=== PATIENT | male | born 2000 ===

== ENCOUNTER → 2019-12-03 | Outpatient (CLI) | payer OTHER ==
[2019-12-03 18:33] LABS: BASO # 0.1 (0.0-0.2); BASO % 0.8 % (0.0-2.0); EOS # 0.1 (0.0-0.7); EOS % 1.3 % (0-4.0); GRAN # 4.9 (1.4-6.5); GRAN % 59.5 % (42.2-75.2); HEMATOCRIT 45.2 % (36.0-47.0); HEMOGLOBIN 15.3 g/dl (12.5-16.1); LYMPH # 2.7 (1.2-3.4); LYMPH % 32.3 % (20.0-51.0); MEAN CELL VOLUME 92 fl (80.0-95.0); MEAN CORPUSCULAR HEMOGLOBIN 31 pg (26.0-32.0); MEAN CORPUSCULAR HGB CONC 34 g/dl (33.0-37.0); MEAN PLATELET VOLUME 10.5 fl (7.4-10.4); MONO # 0.5 (0.1-0.6); MONO % 5.9 % (1.7-9.3); PLATELET COUNT 227 K/mm3 (130-400); RED BLOOD COUNT 4.93 M/mm3 (4.20-5.60); REDCELL DISTRIBUTION WIDTH-CV 12.7 % (11.5-14.5)
[2019-12-03 18:36] LABS: ALBUMIN 4.8 gm/dL (3.5-5.0); BILIRUBIN,TOTAL 0.6 mg/dL (0.0-1.0); CALCIUM 9.6 mg/dL (8.4-10.2); CREATININE, serum 0.79 (0.66-1.25); POTASSIUM 4.1 mmol/L (3.4-5.0); TOTAL PROTEIN 8.6 gm/dL (6.4-8.2)
[2019-12-04 11:55] LABS: CLOSTRIDIUM DIFF A/B NEG; CLOSTRIDIUM DIFF A/B INTERP No C.diff present
== END ==
LOC: ZLAB.KSTAT 16:34
DX: Z01.89 Encounter for other specified special examinations (principal)

== ENCOUNTER 2020-02-14 08:50 | Day surgery (SDC) | payer OTHER ==
[~2020-02-14] VITALS: Ht 177.8 cm; Wt 116.7 kg
[2020-02-14 09:24] VITALS: BP 110/76; PULSE 81; TEMP 98.8
--- NOTE | 2020-02-14 09:39 | NUR ---
TO RM 7 AT 0855 CALL LIGHT IN REACH GIRLFRIEND AT BEDSIDE.
[2020-02-14 10:45] VITALS: BP 115/61; PULSE 76
--- NOTE | 2020-02-14 10:45 | NUR ---
PT RETURNED TO BAY 7 VIA CART FROM ENDO [facility], WALKED TO CHAIR, GAIT STEADY. GIRLFRIEND IN ROOM. CALL LIGHT IN REACH, TAKES DRINK AND SNACK, NO C/O
[2020-02-14 11:00] VITALS: BP 112/73; PULSE 65
[2020-02-14 11:15] VITALS: BP 103/48; PULSE 72
--- NOTE | 2020-02-14 11:15 | NUR ---
DR INTO SEE PT, REVIEWED DISCHARGE INST. WITH PT ON FOLLOWUP WITH OFFICE, ALSO DISCUSSED USAGE OF PROBIOTIC/FIBER RECOMMENDED BY DR TO HELP WITH STOOLS. REVIEWED MODERATE SEDATION WITH VERBAL UNDERSTANDING. IV D'CD INTACT. PT UP AND DRESSED IN ROOM. DISCHARGED AT 1140 VIA W/C TO CAR WITH FRIEND
== END 2020-02-14 11:40 | disposition home or self-care (01) ==
LOC: SDCO 08:50
DX: K29.30 Chronic superficial gastritis without bleeding (principal); R19.7 Diarrhea, unspecified; K92.1 Melena; Z20.828 Contact with and (suspected) exposure to other viral communicable diseases
CPT/HCPCS: J2704; J7030